=== PATIENT | female | born 1950 | race Caucasian/White ===

== ENCOUNTER 2020-10-10 16:48 | Emergency (ER) | payer BC, MEDICARE ==
[2020-10-10] MEDS ORDERED: Morphine 4 MG/ML VIAL ONE ×3 (17:17→19:31)
[2020-10-10 17:57] LABS: #Monocytes 0.5 10x3/uL (0.0-1.1); #Neutrophils 8.5 10x3/uL (1.5-8.4); %Basophils 0.4 % (0.0-2.0); %Eosinophils 0.1 % (0.0-6.0); %Lymphocytes 13.4 % (18.0-47.0); %Monocytes 4.3 % (0.0-10.0); %Neutrophils 81.5 % (40.0-75.0); Hemoglobin 11.8 g/dL (12.0-15.5); Mean Corpuscular HGB CONC 36.5 g/dL (32.0-36.0); Mean Corpuscular Hemoglobin 34.6 pg (27.0-33.0); Mean Corpuscular Volume 94.7 fl (81.6-98.3); Mean Platelet Volume 9.4 fl (7.4-10.4); Platelet Count 253 10x3/uL (150-450); RBC Distribution Width 11.8 % (11.5-14.5); Red Blood Cell (RBC) Count 3.41 10x6/uL (3.90-5.03); White Blood Cell (WBC) Count 10.4 10x3/uL (3.5-10.5)
[2020-10-10 18:09] LABS: INR-International Normal Ratio 0.9; PTT 21.2 sec (22.0-33.0); Prothrombin Time 10.1 sec (9.5-12.1)
[2020-10-10 18:12] LABS: ALT (SGPT) 59 U/L (8-55); AST (SGOT) 108 U/L (5-34); Albumin 3.6 g/dL (3.4-4.8); Alkaline Phosphatase 102 U/L (40-110); Anion Gap 19 mmol/L (10-20); BUN (Urea Nitrogen) 5 mg/dL (9.8-20.1); Bilirubin, Total 0.5 mg/dL (0.2-1.2); Calc. Creatinine Clearance 0 mL/min (70-130); Calcium 9.7 mg/dL (7.8-10.44); Carbon Dioxide 19 mmol/L (23-31); Chloride 91 mmol/L (98-107); Globulin 2.5 g/dL (2.4-3.5); Glucose 115 mg/dL (80-115); Lipase 18 U/L (8-78); Potassium 3.7 mmol/L (3.5-5.1); Protein, Total 6.1 g/dL (5.8-8.1); Sodium 125 mmol/L (136-145)
[2020-10-10 18:43] LABS: Magnesium 1.3 mg/dL (1.6-2.6); Phosphorus 3.6 mg/dL (2.3-4.7)
[2020-10-10 18:44] LABS: Acetaminophen Less than 6.0 mcg/mL (10.0-30.0); Alcohol 123 mg/dL (Less than 10); Salicylate Less than 8.0 mg/dL (15.0-30.0)
[2020-10-10] MEDS ORDERED: Ondansetron PF 4 MG/2 ML Vial ONE (18:44)
== END 2020-10-10 19:51 | disposition short-term general hospital (02) ==
LOC: CSHERS 16:48
DX: S72.142A Displaced intertrochanteric fracture of left femur, initial encounter for closed fracture (principal); W06.XXXA Fall from bed, initial encounter
CPT/HCPCS: 36415; 71045; 80053; 80307; 83690; 83735; 84100; 85025; 85610; 85730; 86850; 86900; 86901; 93005; 96374; 96375; 96376; J2270; J2405

== ENCOUNTER 2022-02-26 10:56 | Inpatient (IN) | payer OTHER, MEDICARE ==
[2022-02-26] MEDS ORDERED: Morphine 4 MG/ML VIAL ONE (11:27)
[2022-02-26] MEDS ORDERED: Ondansetron PF 4 MG/2 ML Vial ONE ×2 (11:28→13:06)
[2022-02-26 11:52] LABS: #Basophils 0.1 10x3/uL (0.0-0.2); #Eosinphils 0.1 10x3/uL (0.0-0.5); #Monocytes 1.1 10x3/uL (0.0-1.1); #Neutrophils 8.6 10x3/uL (1.5-8.4); %Basophils 0.6 % (0.0-2.0); %Eosinophils 0.5 % (0.0-6.0); %Lymphocytes 8.8 % (18.0-47.0); %Monocytes 10.2 % (0.0-10.0); %Neutrophils 79.3 % (40.0-75.0); Hemoglobin 13.1 g/dL (12.0-15.5); Mean Corpuscular HGB CONC 36.7 g/dL (32.0-36.0); Mean Corpuscular Hemoglobin 34.7 pg (27.0-33.0); Mean Corpuscular Volume 94.7 fl (81.6-98.3); Mean Platelet Volume 8.9 fl (7.4-10.4); Platelet Count 288 10x3/uL (150-450); RBC Distribution Width 11.9 % (11.5-14.5); Red Blood Cell (RBC) Count 3.77 10x6/uL (3.90-5.03); White Blood Cell (WBC) Count 10.8 10x3/uL (3.5-10.5)
[2022-02-26] MEDS ORDERED: Fentanyl 100 MCG/2 ML VIAL ONE (12:02)
[2022-02-26 12:14] LABS: ALT (SGPT) 19 U/L (8-55); AST (SGOT) 27 U/L (5-34); Alkaline Phosphatase 115 U/L (40-110); Anion Gap 18 mmol/L (10-20); BUN (Urea Nitrogen) 5 mg/dL (9.8-20.1); Bilirubin, Total 0.9 mg/dL (0.2-1.2); CK (CPK) 165 U/L (29-168); Calc. Creatinine Clearance 0 mL/min (70-130); Calcium 9.5 mg/dL (7.8-10.44); Carbon Dioxide 23 mmol/L (23-31); Chloride 93 mmol/L (98-107); Estimated GFR 97; Globulin 2.7 g/dL (2.4-3.5); Glucose 92 mg/dL (80-115); Potassium 4.9 mmol/L (3.5-5.1); Protein, Total 6.7 g/dL (5.8-8.1); Sodium 129 mmol/L (136-145)
[2022-02-26 12:37] LABS: Bilirubin Neg (Negative); Blood, Urine 10 (Negative); Glucose, Urine (Dipstick) Normal (Negative); Ketone, Urine 15 mg/dL (Negative); Leukocyte 500 (Negative); Nitrite Positive (Negative); Protein, Urine (Dipstick) 15 mg/dl (Neg-Trace); Specific Gravity, Urine 1.005 (1.002-1.036); Urobilinogen Normal mg/dL (Less than 2)
[2022-02-26 12:39] LABS: Clarity Hazy (Clear)
[2022-02-26 12:48] LABS: Bacteria/HPF 4+ HPF (None Seen); RBC/HPF 0-3 HPF (0-3); Squamous Epithelial 0-3 HPF (0-3)
[2022-02-26] MEDS ORDERED: hydrALAZINE 20 MG/ML VIAL ONE (14:08)
[2022-02-26] MEDS ORDERED: cefTRIAXone\\ROCEPHIN 2 GM VIAL ONE (14:08)
[2022-02-26] MEDS ORDERED: HYDROcodone/Acetaminophen 5/325 mg Tablet ONE (14:12)
[2022-02-26 15:47] LABS: Troponin I Less than 0.010 ng/mL (< 0.028)
[2022-02-26 16:22] LABS: SARS-CoV-2 NAA Rapid Test Not Detected (NotDetected)
[2022-02-26] MEDS ORDERED: Ondansetron ODT 4 MG TAB PO PRN (16:43)
[2022-02-26] MEDS ORDERED: Calcium Carbonate 500 MG ChewTAB PO PRN (16:43)
[2022-02-26] MEDS ORDERED: Morphine 2 MG/ML VIAL SLOW IVP PRN (16:46)
[2022-02-26] MEDS ORDERED: Nicotine 14 MG PATCH TD PRN (17:06)
[2022-02-26] MEDS: Calcium Carbonate 600 MG + Vit D TAB PO SCH (17:12)
[2022-02-26 17:55] VITALS: BMI 17.8
[2022-02-26] MEDS: Sodium Chloride 0.9% 1,000 ML IV SCH (18:32)
[2022-02-26 19:13] LABS: Troponin I Less than 0.010 ng/mL (< 0.028)
[2022-02-26] MEDS: Heparin 5,000 UNITS/ML VIAL SC SCH (21:12)
[2022-02-26] MEDS: Famotidine 20 MG TAB PO SCH (21:12)
[2022-02-26] MEDS: Bisacodyl 10 MG SUPP PR SCH ×2 (21:13)
[2022-02-26] MEDS: Senokot S 8.6-50 MG TAB PO SCH (21:13)
[2022-02-26] MEDS: Saccharomyces boulardii 250 MG CAP PO SCH (21:13)
[2022-02-26] MEDS: Polyethylene Glycol 3350 17 GM Packet PO SCH (21:14)
[2022-02-26] MEDS: Acetaminophen 325 MG TAB PO SCH (21:15)
[2022-02-26] MEDS: Amlodipine 5 MG TAB PO SCH (21:21)
[2022-02-26] MEDS: Morphine ER 15 MG TAB PO SCH (21:22)
[2022-02-26] MEDS: Nicotine 21 MG PATCH TOP SCH (21:30)
[2022-02-27] MEDS: Ondansetron PF 4 MG/2 ML Vial IVP PRN ×3 (05:35→19:54)
[2022-02-27] MEDS: HYDROcodone/Acetaminophen 5/325 mg Tablet PO PRN (05:37)
[2022-02-27] MEDS: Sodium Chloride 0.9% 1,000 ML IV SCH (06:23)
[2022-02-27] MEDS: Amlodipine 5 MG TAB PO SCH ×2 (06:32→20:00)
[2022-02-27 06:41] LABS: #Basophils 0.1 10x3/uL (0.0-0.2); #Eosinphils 0.2 10x3/uL (0.0-0.5); #Neutrophils 4.8 10x3/uL (1.5-8.4); %Basophils 0.7 % (0.0-2.0); %Eosinophils 2.4 % (0.0-6.0); %Lymphocytes 26.7 % (18.0-47.0); %Monocytes 11.6 % (0.0-10.0); %Neutrophils 58.1 % (40.0-75.0); Mean Corpuscular HGB CONC 36.3 g/dL (32.0-36.0); Mean Corpuscular Hemoglobin 33.9 pg (27.0-33.0); Mean Corpuscular Volume 93.2 fl (81.6-98.3); Mean Platelet Volume 9.7 fl (7.4-10.4); Platelet Count 294 10x3/uL (150-450); Red Blood Cell (RBC) Count 3.84 10x6/uL (3.90-5.03); White Blood Cell (WBC) Count 8.3 10x3/uL (3.5-10.5)
[2022-02-27 06:47] LABS: Anion Gap 12 mmol/L (10-20); BUN (Urea Nitrogen) 7 mg/dL (9.8-20.1); Calc. Creatinine Clearance 60 mL/min (70-130); Carbon Dioxide 26 mmol/L (23-31); Chloride 92 mmol/L (98-107); Potassium 3.8 mmol/L (3.5-5.1); Sodium 126 mmol/L (136-145)
[2022-02-27 06:48] LABS: Calcium 9.9 mg/dL (7.8-10.44); Estimated GFR 97; Glucose 76 mg/dL (80-115); Magnesium 1.4 mg/dL (1.6-2.6); Phosphorus 3.2 mg/dL (2.3-4.7)
[2022-02-27] MEDS ORDERED: Electrolyte Replacement Protocol 1 EACH FS SCH (08:15)
[2022-02-27] MEDS: Senokot S 8.6-50 MG TAB PO SCH ×2 (10:41→21:36)
[2022-02-27] MEDS: Heparin 5,000 UNITS/ML VIAL SC SCH ×2 (10:41→21:34)
[2022-02-27] MEDS: Morphine ER 15 MG TAB PO SCH ×2 (10:42→21:35)
[2022-02-27] MEDS: Acetaminophen 325 MG TAB PO SCH ×3 (10:42→21:34)
[2022-02-27] MEDS: Calcium Carbonate 600 MG + Vit D TAB PO SCH ×2 (10:42→18:57)
[2022-02-27] MEDS: Multivit, Therapeutic 1 TAB PO SCH (10:44)
[2022-02-27] MEDS: Famotidine 20 MG TAB PO SCH ×2 (10:44→21:36)
[2022-02-27] MEDS: Polyethylene Glycol 3350 17 GM Packet PO SCH ×2 (10:45→21:36)
[2022-02-27] MEDS: hydrALAZINE 20 MG/ML VIAL SLOW IVP PRN ×2 (12:47→19:49)
[2022-02-27] MEDS: Magnesium 2 GM/50 ML(in water) 2 GM in Premix Bag 1 BAG IVPB SCH ×2 (12:59→14:13)
[2022-02-27] MEDS: cefTRIAXone\\ROCEPHIN 1 GM in Sodium Chloride 0.9% 100 ML IVPB SCH (15:43)
[2022-02-27] MEDS: Saccharomyces boulardii 250 MG CAP PO SCH (21:36)
[2022-02-27] MEDS: Bisacodyl 10 MG SUPP PR SCH (21:37)
[2022-02-27] MEDS: Nicotine 21 MG PATCH TOP SCH ×2 (21:48→21:54)
[2022-02-28 04:49] LABS: #Eosinphils 0.1 10x3/uL (0.0-0.5); #Monocytes 0.7 10x3/uL (0.0-1.1); #Neutrophils 3.5 10x3/uL (1.5-8.4); %Basophils 0.7 % (0.0-2.0); %Eosinophils 2.3 % (0.0-6.0); %Lymphocytes 22.6 % (18.0-47.0); %Monocytes 12.1 % (0.0-10.0); %Neutrophils 61.8 % (40.0-75.0); Hemoglobin 12.3 g/dL (12.0-15.5); Mean Corpuscular Hemoglobin 33.5 pg (27.0-33.0); Mean Corpuscular Volume 93.2 fl (81.6-98.3); Platelet Count 278 10x3/uL (150-450); RBC Distribution Width 11.9 % (11.5-14.5); Red Blood Cell (RBC) Count 3.67 10x6/uL (3.90-5.03); White Blood Cell (WBC) Count 5.7 10x3/uL (3.5-10.5)
[2022-02-28 05:00] LABS: Anion Gap 15 mmol/L (10-20); BUN (Urea Nitrogen) 5 mg/dL (9.8-20.1); Calc. Creatinine Clearance 59 mL/min (70-130); Calcium 9.1 mg/dL (7.8-10.44); Carbon Dioxide 22 mmol/L (23-31); Chloride 94 mmol/L (98-107); Estimated GFR 97; Glucose 92 mg/dL (80-115); Magnesium 1.9 mg/dL (1.6-2.6); Potassium 3.5 mmol/L (3.5-5.1); Sodium 127 mmol/L (136-145)
[2022-02-28] MEDS ORDERED: Magnesium 2 GM/50 ML(in water) 2 GM in Premix Bag 1 BAG IVPB SCH (05:15)
[2022-02-28] MEDS ORDERED: Potassium Chloride 20 MEQ TAB PO SCH (05:15)
[2022-02-28] MEDS: hydrALAZINE 20 MG/ML VIAL SLOW IVP PRN (06:04)
[2022-02-28] MEDS ORDERED: Polyethylene Glycol 3350 17 GM Packet ONE (09:31)
[2022-02-28] MEDS: Acetaminophen 325 MG TAB PO SCH ×3 (09:33→22:27)
[2022-02-28] MEDS: Heparin 5,000 UNITS/ML VIAL SC SCH ×2 (09:34→21:34)
[2022-02-28] MEDS: Morphine ER 15 MG TAB PO SCH ×2 (09:35→21:31)
[2022-02-28] MEDS: Multivit, Therapeutic 1 TAB PO SCH (09:35)
[2022-02-28] MEDS: Senokot S 8.6-50 MG TAB PO SCH ×2 (09:35→21:41)
[2022-02-28] MEDS: Thiamine 100 MG TAB PO SCH (09:35)
[2022-02-28] MEDS: Polyethylene Glycol 3350 17 GM Packet PO SCH ×2 (09:36→21:34)
[2022-02-28] MEDS: Amlodipine 5 MG TAB PO SCH ×2 (09:38→21:33)
[2022-02-28] MEDS: Famotidine 20 MG TAB PO SCH ×2 (09:38→21:33)
[2022-02-28] MEDS: Calcium Carbonate 600 MG + Vit D TAB PO SCH ×2 (09:38→17:31)
[2022-02-28] MEDS: cefTRIAXone\\ROCEPHIN 1 GM in Sodium Chloride 0.9% 100 ML IVPB SCH (14:53)
[2022-02-28] MEDS: HYDROcodone/Acetaminophen 5/325 mg Tablet PO PRN (16:06)
[2022-02-28] MEDS: Saccharomyces boulardii 250 MG CAP PO SCH (21:32)
[2022-02-28] MEDS: Bisacodyl 10 MG SUPP PR SCH (21:34)
[2022-03-01 04:44] LABS: ALT (SGPT) 8 U/L (8-55); AST (SGOT) 17 U/L (5-34); Alkaline Phosphatase 87 U/L (40-110); Anion Gap 13 mmol/L (10-20); BUN (Urea Nitrogen) 6 mg/dL (9.8-20.1); Bilirubin, Total 0.4 mg/dL (0.2-1.2); Calc. Creatinine Clearance 61 mL/min (70-130); Calcium 9.1 mg/dL (7.8-10.44); Carbon Dioxide 23 mmol/L (23-31); Chloride 94 mmol/L (98-107); Estimated GFR 97; Globulin 2.3 g/dL (2.4-3.5); Glucose 92 mg/dL (80-115); Magnesium 1.5 mg/dL (1.6-2.6); Potassium 3.7 mmol/L (3.5-5.1); Protein, Total 5.3 g/dL (5.8-8.1); Sodium 126 mmol/L (136-145)
[2022-03-01] MEDS ORDERED: Magnesium 2 GM/50 ML(in water) 2 GM in Premix Bag 1 BAG IVPB SCH (05:00)
[2022-03-01] MEDS ORDERED: Magnesium Sulfate 4 GM in Sodium Chloride 0.9% 250 ML 250 ML IVPB ONE ×2 (07:51→15:58)
[2022-03-01] MEDS: Magnesium 2 GM/50 ML(in water) 2 GM in Premix Bag 1 BAG IVPB SCH ×2 (08:12→11:01)
[2022-03-01] MEDS: Senokot S 8.6-50 MG TAB PO SCH ×2 (08:14→20:46)
[2022-03-01] MEDS: Acetaminophen 325 MG TAB PO SCH ×3 (08:15→20:46)
[2022-03-01] MEDS: Polyethylene Glycol 3350 17 GM Packet PO SCH ×2 (08:15→20:46)
[2022-03-01] MEDS: Lisinopril 20 MG TAB PO SCH (08:16)
[2022-03-01] MEDS: Famotidine 20 MG TAB PO SCH ×2 (08:17→20:45)
[2022-03-01] MEDS: Heparin 5,000 UNITS/ML VIAL SC SCH ×2 (08:17→20:47)
[2022-03-01] MEDS: Multivit, Therapeutic 1 TAB PO SCH (08:17)
[2022-03-01] MEDS: Calcium Carbonate 600 MG + Vit D TAB PO SCH ×2 (08:17→17:55)
[2022-03-01] MEDS: Morphine ER 15 MG TAB PO SCH ×2 (08:18→20:45)
[2022-03-01] MEDS: Amlodipine 5 MG TAB PO SCH ×2 (08:19→20:45)
[2022-03-01] MEDS: Thiamine 100 MG TAB PO SCH (10:08)
[2022-03-01] MEDS: cefTRIAXone\\ROCEPHIN 1 GM in Sodium Chloride 0.9% 100 ML IVPB SCH (15:11)
[2022-03-01] MEDS: Saccharomyces boulardii 250 MG CAP PO SCH (20:45)
[2022-03-01] MEDS: Nicotine 21 MG PATCH TOP SCH (20:46)
[2022-03-01] MEDS: Bisacodyl 10 MG SUPP PR SCH (20:47)
[2022-03-02 04:48] LABS: Magnesium 1.8 mg/dL (1.6-2.6)
[2022-03-02] MEDS ORDERED: Magnesium 2 GM/50 ML(in water) 2 GM in Premix Bag 1 BAG IVPB SCH (05:00)
[2022-03-02] MEDS: Amlodipine 5 MG TAB PO SCH ×2 (08:52→21:45)
[2022-03-02] MEDS: Thiamine 100 MG TAB PO SCH (08:52)
[2022-03-02] MEDS: Acetaminophen 325 MG TAB PO SCH ×3 (08:52→21:45)
[2022-03-02] MEDS: Multivit, Therapeutic 1 TAB PO SCH (08:52)
[2022-03-02] MEDS: Magnesium Oxide 400 MG TAB PO SCH ×2 (08:52→21:46)
[2022-03-02] MEDS: Calcium Carbonate 600 MG + Vit D TAB PO SCH ×2 (08:53→14:42)
[2022-03-02] MEDS: Polyethylene Glycol 3350 17 GM Packet PO SCH ×2 (08:53→21:47)
[2022-03-02] MEDS: Lisinopril 20 MG TAB PO SCH (08:53)
[2022-03-02] MEDS: Famotidine 20 MG TAB PO SCH ×2 (08:53→21:46)
[2022-03-02] MEDS: Senokot S 8.6-50 MG TAB PO SCH ×2 (08:53→21:47)
[2022-03-02] MEDS: Sodium Chloride 1 GM TAB PO SCH ×3 (08:58→21:56)
[2022-03-02] MEDS: Heparin 5,000 UNITS/ML VIAL SC SCH ×2 (08:58→21:44)
[2022-03-02] MEDS ORDERED: Ergocalciferol 1.25 MG(50,000 UNITS) CAP PO SCH (09:00)
[2022-03-02] MEDS: HYDROcodone/Acetaminophen 5/325 mg Tablet PO PRN (09:26)
[2022-03-02] MEDS: Ondansetron PF 4 MG/2 ML Vial IVP PRN (11:41)
[2022-03-02] MEDS: cefTRIAXone\\ROCEPHIN 1 GM in Sodium Chloride 0.9% 100 ML IVPB SCH (14:42)
[2022-03-02] MEDS: Saccharomyces boulardii 250 MG CAP PO SCH (21:46)
[2022-03-02] MEDS: Bisacodyl 10 MG SUPP PR SCH (21:46)
[2022-03-02] MEDS: Nicotine 21 MG PATCH TOP SCH (21:56)
[2022-03-02] MEDS ORDERED: Simethicone Chewable 80 MG TAB PO SCH (23:59)
[2022-03-03] MEDS ORDERED: Labetalol HCl 100 MG/20 ML VIAL SLOW IVP PRN (06:03)
[2022-03-03] MEDS ORDERED: cefTRIAXone\\ROCEPHIN 1 GM in Sodium Chloride 0.9% 100 ML IVPB SCH (09:00)
[2022-03-03] MEDS: Ondansetron PF 4 MG/2 ML Vial IVP PRN (10:47)
[2022-03-03] MEDS: Amlodipine 5 MG TAB PO SCH (10:52)
[2022-03-03] MEDS: Calcium Carbonate 600 MG + Vit D TAB PO SCH (10:53)
[2022-03-03] MEDS: Famotidine 20 MG TAB PO SCH (10:53)
[2022-03-03] MEDS: Thiamine 100 MG TAB PO SCH (10:53)
[2022-03-03] MEDS: Multivit, Therapeutic 1 TAB PO SCH (10:53)
[2022-03-03] MEDS: Magnesium Oxide 400 MG TAB PO SCH (10:53)
[2022-03-03] MEDS: Lisinopril 20 MG TAB PO SCH (10:54)
[2022-03-03] MEDS: Acetaminophen 325 MG TAB PO SCH (10:54)
[2022-03-03] MEDS: Polyethylene Glycol 3350 17 GM Packet PO SCH (10:55)
[2022-03-03] MEDS: Heparin 5,000 UNITS/ML VIAL SC SCH (10:55)
[2022-03-03] MEDS: Senokot S 8.6-50 MG TAB PO SCH (10:56)
[2022-03-03] MEDS: Sodium Chloride 1 GM TAB PO SCH (11:00)
[2022-03-03 12:33] VITALS: BP 164/85; TEMP 97.1
== END 2022-03-03 15:34 | disposition home or self-care (01) | DRG 552 ==
LOC: CSHERS 10:56 → CSHTELE 15:59 → OBSVTOIN 02-28 11:02
PROVIDERS: ADMIT Internal Medicine; ATTEND Internal Medicine
DX: S32.19XA Other fracture of sacrum, initial encounter for closed fracture (principal); S32.592A Other specified fracture of left pubis, initial encounter for closed fracture; N39.0 Urinary tract infection, site not specified; E22.2 Syndrome of inappropriate secretion of antidiuretic hormone; S36.81XA Injury of peritoneum, initial encounter; I45.10 Unspecified right bundle-branch block; W19.XXXA Unspecified fall, initial encounter; F17.210 Nicotine dependence, cigarettes, uncomplicated; I16.0 Hypertensive urgency; K59.00 Constipation, unspecified; M81.0 Age-related osteoporosis without current pathological fracture; F10.20 Alcohol dependence, uncomplicated; J40 Bronchitis, not specified as acute or chronic; B96.20 Unspecified Escherichia coli [E. coli] as the cause of diseases classified elsewhere; Z20.822 Contact with and (suspected) exposure to COVID-19; E87.6 Hypokalemia; E83.42 Hypomagnesemia; Z91.81 History of falling; Y92.89 Other specified places as the place of occurrence of the external cause; Z88.5 Allergy status to narcotic agent; Z79.82 Long term (current) use of aspirin; Z79.899 Other long term (current) drug therapy; Z98.51 Tubal ligation status; Z98.890 Other specified postprocedural states
CPT/HCPCS: 36415; 71045; 72192; 80048; 80053; 81003; 81015; 82306; 82550; 83735; 84100; 84484; 85025; 87077; 87086; 87186; 93005; 94640; 94760; 96365; 96375; 96376; G0378; J0360; J0696; J1644; J2270; J2405; J3010; J3475; J3490; J7050; J7620; Q0162; U0002

== ENCOUNTER 2022-03-28 13:57 | Outpatient (CLI) | payer MEDICARE ==
[~2022-03-28 13:57] MED LIST: Iopamidol 370 76% 100 ML VIAL ONE
== END 2022-03-28 13:58 | disposition home or self-care (01) ==
LOC: CSHCT 13:57
PROVIDERS: ATTEND Family Medicine
DX: R91.1 Solitary pulmonary nodule (principal); R91.8 Other nonspecific abnormal finding of lung field
CPT/HCPCS: 71260; 82565; Q9967